=== PATIENT | female | born 1995 | race Caucasian/White ===

== ENCOUNTER 2018-08-13 11:01 | Emergency (ER) | payer BC ==
[2018-08-13 11:13] VITALS: BP 110/53; PULSE 92; TEMP 98.2; BMI 18.3
[2018-08-13] MEDS ORDERED: SODIUM CHLORIDE 1,000 ML IV STA (11:48)
[2018-08-13] MEDS ORDERED: METOCLOPRAMIDE HCL INJECTION 10 MG/2 ML VIAL IVPB ONE (11:48)
[2018-08-13] MEDS ORDERED: ACETAMINOPHEN 1000 MG/100 ML VIAL (NON FORMULARY) IVPB ONE (11:48)
[2018-08-13] MEDS ORDERED: ACETAMINOPHEN INJECTION 100 ML IVPB ONE (11:56)
[2018-08-13] MEDS ORDERED: METOCLOPRAMIDE HCL INJECTION 10 MG/2 ML VIAL ONE (11:56)
--- NOTE | 2018-08-13 12:16 | PDOC ---
History of Present Illness - General Chief Complaint: Pain, Acute Stated Complaint: ABD PAIN/ VOMITING/ HEADACHE Time Seen by Provider: 08/13/18 11:45 History Source: Patient Exam Limitations: No Limitations - History of Present Illness Travel History: No Initial Comments: 08/13/18 12:09 23-year-old female presents to ED with complaints of nausea and vomiting now with upper abdominal pain. Patient states symptoms began about 2 days ago. Patient denies fever, chills, diarrhea but states poor solid intake and last bowel movement was 4 days. Since states does not normally move her bowels every day and states had a breast augmentation done in [facility] that went uneventfully and has no complaints of redness swelling or drainage from the incisional sites. Patient denies GI history and states has depo injections last menses being approximately 4 years ago without spotting Timing/Duration: reports: constant Quality: reports: mild, cramping, sharpness Abdominal Pain Onset Location: reports: epigastric Pain Radiation: reports: no radiation Activities at Onset: reports: none Aggravating Factors: improves with: None Alleviating Factors: improves with: None Past History - Travel Traveled outside of the country in the last 30 days: Yes Close contact w/someone who was outside of country & ill: No - Past Medical History Allergies/Adverse Reactions: Allergies Allergy/AdvReac Type Severity Reaction Status Date / Time No Known Allergies Allergy Verified 08/13/18 11:13 Home Medications: Ambulatory Orders Ondansetron HCl [Zofran] 4 mg PO TID PRN #12 tablet 08/13/18 COPD: No - Immunization History Immunization Up to Date: No - Suicide/Smoking/Psychosocial Hx Smoking History: Never smoked Have you smoked in the past 12 months: No Information on smoking cessation initiated: No Hx Alcohol Use: No Drug/Substance Use Hx: No Patient Lives Alone: No Lives with/in: parents Review of Systems - Review of Systems Able to Perform ROS?: No Is the patient limited Persian proficient: No Constitutional: Yes: Loss of Appetite, Weakness HEENTM: No: Symptoms Reported Respiratory: No: Symptoms reported Cardiac (ROS): No: Symptoms Reported ABD/GI: Yes: Constipated, Nausea, Poor Appetite, Vomiting, Indigestion, Abdominal cramping. No: Diarrhea, Poor Fluid Intake : No: Symptoms Reported Musculoskeletal: No: Symptoms Reported Integumentary: No: Symptoms Reported Neurological: No: Symptoms reported Endocrine: No: Symptoms Reported Hematologic/Lymphatic: No: Symptoms Reported *Physical Exam - Vital Signs Last Vital Signs Temp Pulse Resp BP Pulse Ox 98.2 F 92 H 18 110/53 L 100 08/13/18 11:09 08/13/18 11:09 08/13/18 11:09 08/13/18 11:09 08/13/18 11:09 - Physical Exam General Appearance: Yes: Nourished, Appropriately Dressed. No: Apparent Distress HEENT: negative: Pale Conjunctivae Neck: positive: Supple Respiratory/Chest: positive: Lungs Clear, Normal Breath Sounds. negative: Respiratory Distress, Accessory Muscle Use Cardiovascular: positive: Regular Rhythm, Regular Rate. negative: Murmur Gastrointestinal/Abdominal: positive: Soft, Tenderness (epigastric, right upper quadrant) Musculoskeletal: negative: CVA Tenderness Extremity: positive: Normal Capillary Refill. negative: Pedal Edema Integumentary: positive: Normal Color, Warm, Moist Neurologic: positive: Motor Strength 5/5 (ambulatory) ED Treatment Course - LABORATORY CBC & Chemistry Diagram: 08/13/18 12:07 08/13/18 12:07 Medical Decision Making - Medical Decision Making 08/13/18 12:03 CC: n/v, upper epigastric cramping Exam: epigastric tenderness w/ ruq tenderness, appears dehydrated Plan: Urine, labs, reglan, iv tylenol, lipase, lactic acid 08/13/18 13:27 Laboratory Tests 08/13/18 08/13/18 08/13/18 12:07 12:07 12:07 WBC 5.0 Hgb 14.8 Hct 43.3 Plt Count 287 MPV 7.9 Absolute Neuts (auto) 3.6 Neutrophils % 71.6 Lymphocytes % 19.0 Sodium 135 L Potassium 4.9 Chloride 103 Carbon Dioxide 27 Anion Gap 5 L BUN 13 Creatinine 0.7 Random Glucose 85 Lactic Acid 0.8 Calcium 10.0 Magnesium 2.8 H Total Bilirubin 1.0 AST 17 ALT 26 Alkaline Phosphatase 59 Total Protein 8.1 Urine Ketones Urine Nitrite Urine Bilirubin Ur Leukocyte Esterase Urine HCG, Qual 08/13/18 12:38 WBC Hgb Hct Plt Count MPV Absolute Neuts (auto) Neutrophils % Lymphocytes % Sodium Potassium Chloride Carbon Dioxide Anion Gap BUN Creatinine Random Glucose Lactic Acid Calcium Magnesium Total Bilirubin AST ALT Alkaline Phosphatase Total Protein Urine Ketones 1+ H Urine Nitrite Negative Urine Bilirubin Negative Ur Leukocyte Esterase Negative Urine HCG, Qual Negative Pt tolerated lunch and is requesting to go home. Patient will be given prescription for Zofran. *DC/Admit/Observation/Transfer Diagnosis at time of Disposition: Nausea & vomiting - Discharge Dispostion Disposition: HOME Condition at time of disposition: Improved - Prescriptions Prescriptions: Ondansetron HCl [Zofran] 4 mg PO TID PRN #12 tablet PRN Reason: Nausea And/Or Vomiting - Referrals - Patient Instructions Printed Discharge Instructions: DI for Nausea -- Adult Additional Instructions: Please eat small frequent meals throughout the day. Medication as needed for nausea. If symptoms worsen please return to the ED. - Post Discharge Activity
[2018-08-13 12:27] LABS: EOS % 1.8 % (0-4.5); HEMATOCRIT 43.3 % (32.4-45.2); HEMOGLOBIN 14.8 GM/dL (10.7-15.3); MCH 29.9 pg (25.7-33.7); MCHC 34.2 g/dl (32.0-36.0); MEAN CELL VOLUME 87.5 fl (80-96); MEAN PLT VOLUME 7.9 fl (7.5-11.1); MONO % 6.6 % (3.8-10.2); NEUT % 71.6 % (42.8-82.8); PLATELET COUNT 287 K/MM3 (134-434); RBC 4.95 M/mm3 (3.60-5.2); RDW 13.2 % (11.6-15.6)
[2018-08-13 12:57] LABS: ALBUMIN 4.5 g/dl (3.4-5.0); ALK PHOS 59 U/L (45-117); ANION GAP 5 MMOL/L (8-16); BLOOD UREA NITROGEN 13 mg/dL (7-18); CHLORIDE 103 mmol/L (98-107); CO2 27 mmol/L (21-32); CREATININE 0.7 mg/dL (0.55-1.3); GLUCOSE,RANDOM 85 mg/dL (74-106); MAGNESIUM 2.8 mg/dL (1.8-2.4); POTASSIUM 4.9 mmol/L (3.5-5.1); SGOT/AST 17 U/L (15-37); SGPT/ALT 26 U/L (13-61); SODIUM 135 mmol/L (136-145); TOT PROT 8.1 g/dl (6.4-8.2)
[2018-08-13 13:15] LABS: URINE APPEARANCE CLOUDY; URINE BILIRUBIN NEGATIVE (NEGATIVE); URINE COLOR DK YELLOW; URINE GLUCOSE (UA) NEGATIVE (NEGATIVE); URINE KETONE 1+ (NEGATIVE); URINE LEUK ESTERASE NEGATIVE (NEGATIVE); URINE NITRITE NEGATIVE (NEGATIVE); URINE PROTEIN TRACE (NEGATIVE)
[2018-08-13 13:18] LABS: HCG,QUALITATIVE URINE Negative
--- NOTE | 2018-08-13 13:49 | PDOC ---
*Physical Exam - Vital Signs Last Vital Signs Temp Pulse Resp BP Pulse Ox 98.2 F 92 H 18 110/53 L 100 08/13/18 11:09 08/13/18 11:09 08/13/18 11:09 08/13/18 11:09 08/13/18 11:09 ED Treatment Course - LABORATORY CBC & Chemistry Diagram: 08/13/18 12:07 08/13/18 12:07 - ADDITIONAL ORDERS Additional order review: Laboratory Results 08/13/18 08/13/18 08/13/18 12:38 12:07 12:07 Sodium 135 L Potassium 4.9 Chloride 103 Carbon Dioxide 27 Anion Gap 5 L BUN 13 Creatinine 0.7 Creat Clearance w eGFR 103.70 Random Glucose 85 Lactic Acid 0.8 Calcium 10.0 Magnesium 2.8 H Total Bilirubin 1.0 AST 17 ALT 26 Alkaline Phosphatase 59 Total Protein 8.1 Albumin 4.5 Urine Color Dk yellow Urine Appearance Cloudy Urine pH 6.0 Ur Specific [place] 1.035 Urine Protein Trace Urine Glucose (UA) Negative Urine Ketones 1+ H Urine Blood Negative Urine Nitrite Negative Urine Bilirubin Negative Urine Urobilinogen 1.0 Ur Leukocyte Esterase Negative Urine HCG, Qual Negative 08/13/18 12:07 RBC 4.95 MCV 87.5 MCHC 34.2 RDW 13.2 MPV 7.9 Neutrophils % 71.6 Lymphocytes % 19.0 Monocytes % 6.6 Eosinophils % 1.8 Basophils % 1.0 - Medications Given in the ED: ED Medications Discontinued Medications Generic Name Dose Route Start Last Admin Trade Name Freq PRN Reason Stop Dose Admin Acetaminophen 1,000 mg 08/13/18 11:48 08/13/18 12:27 Ofirmev Injection - IVPB 08/13/18 11:49 1,000 mg ONCE ONE Administration Sodium Chloride 1,000 mls @ 1,000 mls/hr 08/13/18 11:48 08/13/18 12:26 Normal Saline - IV 08/13/18 12:47 1,000 mls/hr ASDIR STA Administration Metoclopramide HCl 10 mg 08/13/18 11:48 08/13/18 12:27 Reglan Injection - IVPB 08/13/18 11:49 10 mg ONCE ONE Administration Medical Decision Making - Medical Decision Making 08/14/18 17:16 Pt seen by Midlevel Provider under my direct supervision Ancillary studies reviewed I agree with plan as outlined by Midlevel Provider *DC/Admit/Observation/Transfer Diagnosis at time of Disposition: Nausea & vomiting - Discharge Dispostion Disposition: HOME Condition at time of disposition: Improved - Prescriptions Prescriptions: Ondansetron HCl [Zofran] 4 mg PO TID PRN #12 tablet PRN Reason: Nausea And/Or Vomiting - Referrals Referrals: Zahida Vila MD [Primary Care Provider] - - Patient Instructions Printed Discharge Instructions: DI for Nausea -- Adult Additional Instructions: Please eat small frequent meals throughout the day. Medication as needed for nausea. If symptoms worsen please return to the ED. - Post Discharge Activity
[2018-08-17 01:50] LABS: LIPASE 127 U/L (73-393)
== END 2018-08-13 13:50 | disposition home or self-care (01) ==
LOC: JER 11:01
PROC: 3E0337Z Introduction of Electrolytic and Water Balance Substance into Peripheral Vein, Percutaneous Approach (ICD-10-PCS; principal; 2018-08-13)
PROC: 3E033GC Introduction of Other Therapeutic Substance into Peripheral Vein, Percutaneous Approach (ICD-10-PCS; 2018-08-13)
PROC: 3E033NZ Introduction of Analgesics, Hypnotics, Sedatives into Peripheral Vein, Percutaneous Approach (ICD-10-PCS; 2018-08-13)
DX: R12 Heartburn (principal)
CPT/HCPCS: 36415; 80053; 81003; 83605; 83690; 83735; 84703; 85025; 87086; 99281-25; J0131; J7030